=== PATIENT | female | born 1955 | race African-American/Black ===

== ENCOUNTER 2020-03-01 11:55 | Emergency (ER) | payer OTHER ==
[~2020-03-01] VITALS: Ht 167.6 cm; Wt 104.3 kg
--- NOTE | 2020-03-01 12:12 | Emergency Department Note ---
History of Present Illnes History of Present Illness Chief Complaint: Flu Like Symptoms History of Present Illness This is a 65 year old female with two-day history of fever up to 102 at home and body aches. Denies any shortness of breath, denies any urinary complaints, denies any abdominal pain. Patient just with fever bodyaches not feeling well to Tylenol earlier today. Her history of COVID. Arrival Mode: Car Onset (how long ago): day(s) (2) Location: 102 F at home Radiation: Reports non-radiation Severity: moderate Onset quality: gradual Duration (how long): day(s) (2) Timing of current episode: constant Progression: worsening Chronicity: new Context: Reports recent illness Relieving factors: none Exacerbating factors: none Associated symptoms: Reports malaise Treatments prior to arrival: none Past Medical/Family History Physician Review I have reviewed the patient's past medical and family history. Any updates have been documented here. Review of Systems Review of Systems Constitutional: Reports as per HPI EENTM: Reports no symptoms Cardiovascular: Reports no symptoms Respiratory: Reports no symptoms Gastrointestinal: Reports no symptoms Genitourinary: Reports no symptoms Musculoskeletal: Reports no symptoms Integumentary: Reports no symptoms Neurological: Reports no symptoms Psychological: Reports no symptoms Endocrine: Reports no symptoms Hematological/Lymphatic: Reports no symptoms Physical Exam Related Data Allergies: Coded Allergies: No Known Allergies (Unverified , 03/01/20) Vital signs reviewed: Yes Physical Exam CONSTITUTIONAL Constitutional: Present well-developed, Present well-nourished HENT HENT: Present normocephalic, Present atraumatic, Present oropharynx clear/moist, Present nose normal HENT L/R: Present left ext ear normal, Present right ext ear normal EYES Eyes: Reports PERRL, Reports conjunctivae normal NECK Neck: Present ROM normal PULMONARY Pulmonary: Present effort normal, Present breath sounds normal CARDIOVASCULAR Cardiovascular: Present regular rhythm, Present heart sounds normal, Present capillary refill normal, Present tachycardia GASTROINTESTINAL Abdominal: Present soft, Present nontender, Present bowel sounds normal GENITOURINARY Genitourinary: Present exam deferred SKIN Skin: Present warm, Present dry MUSCULOSKELETAL Musculoskeletal: Present ROM normal NEUROLOGICAL Neurological: Present alert, Present oriented x 3, Present no gross motor or sensory deficits PSYCHOLOGICAL Psychological: Present mood/affect normal, Present judgement normal Assessment & Plan Medical Decision Making MDM She is a 65-year-old female otherwise at baseline with fever up to 102 at home. He lives here in the ER, slightly tachycardic. We will work up patient for Covid versus influenza, we'll rule out pneumonia and urinary infection. Patient likely with viral syndrome, and workup is negative will isolate and wait for Covid results. Patient to return if worsening or new symptoms appears. Reassessment Reassessment Patient still doing well, nontoxic, no urine infection, no pneumonia, we'll follow up on Covid 19 results return if worsening for following up with primary care doctor. Assessment & Plan Final Impression: (1) Fever (2) Viral syndrome (3) Suspected COVID-19 virus infection Depart Disposition: HOME, SELF-CARE SAVANAH MOREIRA MD Mar 01, 2020 12:12
[2020-03-01] MEDS ORDERED: IBUPROFEN 400 MG TAB PO ONE (12:15)
[2020-03-01] MEDS ORDERED: IBUPROFEN 400 MG TAB ONE (12:23)
--- NOTE | 2020-03-01 14:36 | Diagnostic Imaging Report ---
X-ray chest frontal view History: Fever, cough Comparison: None Findings: Lines and tubes: Not applicable Central airways: Unremarkable Cardiac silhouette: Unremarkable Great vessels: Unremarkable Mediastinal silhouettes: Unremarkable Pleura: No pleural effusion, pneumothorax or thickening Diaphragms: Unremarkable Lungs: No focal lung disease Skeletal structures: Unremarkable Extrathoracic soft tissues: Unremarkable Impression: No acute cardiopulmonary disease. Signed by: Josue Clark MD on 03/01/2020 2:33 PM
[2020-03-01 16:16] LABS: CLARITY,URINE SL CLOUDY (CLEAR); COLOR,URINE YELLOW (YELLOW); KETONES,URINE NEGATIVE (NEGATIVE); LEUKOCYTE ESTERASE ,URINE SMALL (NEGATIVE); NITRITE,URINE NEGATIVE (NEGATIVE); PROTEIN,URINE DIPSTICK 2+ (NEGATIVE); URINE UROBILINOGEN 0.2 mg/dL (0.2 - 1)
[2020-03-01 16:17] LABS: BILIRUBIN,URINE NEGATIVE (NEGATIVE)
[2020-03-01 16:27] LABS: RBC,URINE 0-5 /HPF (0-5)
[2020-03-01 16:28] LABS: BACTERIA,URINE MODERATE /HPF; EPITHELIAL CELLS,URINE RARE /LPF
--- NOTE | 2020-03-02 05:50 | NUR ---
pt called by dr berrios and informed that positive covid test.
== END 2020-03-01 17:14 | disposition home or self-care (01) ==
LOC: ER 12:14
DX: U07.1 COVID-19 (principal); R50.9 Fever, unspecified
CPT/HCPCS: 71045; 81001; 87400; 99283; U0002